=== PATIENT | male | born 1975 | race Caucasian/White ===

== ENCOUNTER 2020-08-18 19:03 | Emergency (ER) | payer SELFPAY ==
[~2020-08-18 19:03] MED LIST: LOPRESSOR 25 MG25 MG PO
[2020-08-18] MEDS ORDERED: ANTIVERT 12.512.5 MG PO (21:28)
== END 2020-08-18 21:59 | disposition home or self-care (01) ==
LOC: ER1 19:03
DX: R42 Dizziness and giddiness (principal); I48.91 Unspecified atrial fibrillation; F17.290 Nicotine dependence, other tobacco product, uncomplicated; Z88.2 Allergy status to sulfonamides
CPT/HCPCS: 70450; 93005; 99284

== ENCOUNTER 2021-07-18 15:48 | Emergency (ER) | payer OTHER ==
[~2021-07-18 15:48] MED LIST changes: +ANTIVERT 12.512.5 MG PO
[2021-07-18 16:22] LABS: HEMOGLOBIN 16.9 gm/dl (14.0-17.5); RED BLOOD COUNT 6.42 M/UL (4.20-5.50); WHITE BLOOD COUNT 11.6 K/UL (4.5-11.0)
[2021-07-18 16:36] LABS: BUN/CREATININE RATIO 13 (0-10)
[2021-07-18] MEDS ORDERED: AMOXICILLIN875 MG PO (22:00)
[2021-07-18] MEDS ORDERED: IBUPROFEN800 MG PO (22:00)
== END 2021-07-18 22:10 | disposition home or self-care (01) ==
LOC: ER1 15:48
PROVIDERS: Physician Assistant
DX: J03.90 Acute tonsillitis, unspecified (principal); Z20.822 Contact with and (suspected) exposure to COVID-19; I51.9 Heart disease, unspecified
CPT/HCPCS: 0240U; 70491; 80048; 85025; 85652; 86140; 86403; 87081; 87880; 99283; Q9967

== ENCOUNTER → 2022-01-12 | Outpatient (CLI) | payer SELFPAY ==
[~2022-01-12] MED LIST changes: +AMOXICILLIN875 MG PO; +IBUPROFEN800 MG PO
== END ==
LOC: KOH-I 13:26
DX: M25.572 Pain in left ankle and joints of left foot (principal); M25.571 Pain in right ankle and joints of right foot
CPT/HCPCS: 73610; 73630

== ENCOUNTER 2022-01-31 22:46 | Emergency (ER) | payer SELFPAY ==
[2022-01-31 23:23] LABS: HEMOGLOBIN 16.5 gm/dl (14.0-17.5); RED BLOOD COUNT 6.11 M/UL (4.20-5.50); WHITE BLOOD COUNT 12.8 K/UL (4.5-11.0)
[2022-02-01 00:04] LABS: BUN/CREATININE RATIO 7 (0-10)
== END 2022-02-01 03:33 | disposition home or self-care (01) ==
LOC: ER1 22:46
PROVIDERS: Family Medicine; Physician Assistant
DX: R55 Syncope and collapse (principal); I11.9 Hypertensive heart disease without heart failure; I48.91 Unspecified atrial fibrillation; F17.220 Nicotine dependence, chewing tobacco, uncomplicated
CPT/HCPCS: 71045; 80053; 80307; 81001; 82550; 82553; 83735; 83880; 84439; 84443; 84484; 85025; 85379; 85610; 85730; 87086; 93005; 99284